=== PATIENT | male | born 1995 | race Two or more races ===

== ENCOUNTER 2017-06-12 14:44 | Emergency (ER) | payer OTHER ==
[~2017-06-12] VITALS: Ht 168.9 cm; Wt 86.4 kg
[2017-06-12 14:44] VITALS: BP 153/79
[2017-06-12] MEDS ORDERED: ZOFR8TAB PO (14:55)
[2017-06-12] MEDS ORDERED: BENA25TA10 PO (14:55)
[2017-06-12] MEDS ORDERED: MELO15TA4 (14:56)
[2017-06-12] MEDS ORDERED: DOXY100T (14:56)
[2017-06-12] MEDS ORDERED: TRIA1CR TOP (16:45)
== END 2017-06-12 16:56 | disposition home or self-care (01) ==
LOC: M ED 14:44
DX: T78.40XA Allergy, unspecified, initial encounter (principal); L29.9 Pruritus, unspecified; F17.210 Nicotine dependence, cigarettes, uncomplicated; Z79.899 Other long term (current) drug therapy